=== PATIENT | female | born 1935 | race Caucasian/White ===

== ENCOUNTER 2024-07-02 06:40 | Emergency (ER) | payer OTHER ==
[~2024-07-02] VITALS: Ht 147.3 cm; Wt 51.7 kg
[2024-07-02 07:22] VITALS: BP_SYST 147; PULSE 53; RESP 18; TEMP 98.1; O2SAT 97
[2024-07-02] MEDS ORDERED: ATOR-449 PO (07:59)
[2024-07-02] MEDS ORDERED: CLOP75TA32 PO (07:59)
[2024-07-02] MEDS ORDERED: ATEN-168 PO (08:00)
[2024-07-02] MEDS ORDERED: DOCU-144 PO (08:02)
[2024-07-02 08:41] VITALS: BP_SYST 147; PULSE 53; RESP 18; TEMP 98.1; O2SAT 97
== END 2024-07-02 08:41 | disposition home or self-care (01) ==
LOC: SED 06:40
DX: K64.9 Unspecified hemorrhoids (principal); K62.5 Hemorrhage of anus and rectum; K59.00 Constipation, unspecified; I10 Essential (primary) hypertension; Z79.899 Other long term (current) drug therapy
CPT/HCPCS: 82272; 99283